=== PATIENT | female | born 1955 | race Caucasian/White ===

== ENCOUNTER 2016-06-01 20:37 | Emergency (ER) | payer OTHER ==
--- NOTE | ~2016-06-01 | EKG ---
PATIENT: CARMEN HATCH UNIT #: [id number] Ventricular Rate: 94 BPM Atrial Rate: 94 BPM P-R Interval: 136 ms QRS Duration: 72 ms Q-T Interval: 386 ms QTC Calculation(Bezet): 482 ms P [place]: 69 degrees Calculated R [place]: 18 degrees Calculated T [place]: 27 degrees Diagnosis Line: Normal sinus rhythm Diagnosis Line: Nonspecific ST abnormality Diagnosis Line: Otherwise normal ECG Diagnosis Line: When compared with ECG of 22-DEC-2015 19:34, Diagnosis Line: No significant change was found Diagnosis Line: Confirmed by NILSA HOOVER MD ([id number]) on 06/05/2016 Diagnosis Line: 8:00:57 PM INTERPRETING MD: SNEHA RODRIGUEZ
--- NOTE | ~2016-06-01 | CR72 ---
[facility]. [facility] A Service of [facility] & [facility] RADIOLOGY TEXT RESULTS PATIENT: CARMEN HATCH LOCATION: SED : 54 UNIT #: [id number] AGE: [address]: Pacheco Don MD SEX: F ORDER DR: [id number] [place] [id number] E MR#: [id number] Acc #: [id number] NAME: CARMEN HATCH : 1955 SEX: F STUDY DATE/TIME: 06/01/2016 20:12 UNIT: SED ROOM: STUDY DESCRIPTION: CR Chest Single View Portable Attending Physician: Pacheco Don M.D. Ordering Physician: Pacheco Don M.D. Primary Care Physician: No Primary Care Physician MEDICAL IMAGING REPORT This report is preliminary unless electronic signature is present. EXAM Portable chest HISTORY Shortness of air today. Drug overdose. FINDINGS Cardiac size and pulmonary vascularity are within normal limits. No infiltrates or effusions. Moderate sized hiatal hernia. IMPRESSION 1. No acute findings and no active disease. 2. Moderate sized hiatal hernia. Dictated by... Adonis Bradshaw M.D. THIS IS AN ELECTRONICALLY VERIFIED REPORT Adonis Bradshaw M.D. at 06/02/2016 9:10 AM TOMMIE/ellen TD: 06/01/2016 23:27 JOB #: [id number] MEDICAL IMAGING REPORT Page 1 of 1
[2016-06-01 20:19] LABS: BASOPHIL# 0.1 X10e3 (0-0.3); BASOPHIL% 1.4 % (0-2.5); EOSINOPHIL% 0.3 % (0.0-7.0); HEMATOCRIT 45.4 % (35.0-45.0); HEMOGLOBIN 15.1 gm/dL (12.0-16.0); LYMPHOCYTE# 1.7 X10e3 (1.0-3.5); LYMPHOCYTE% 22.9 % (17.0-45.0); MEAN CELL VOLUME 86.6 FL (83-96); MEAN CORPUSCULAR HEMOGLOBIN 28.8 PG (28-34); MEAN CORPUSCULAR HGB CONC 33.3 g/dL (30-36); MEAN PLATELET VOLUME 7.9 FL (6.5-11.5); MONOCYTE# 0.6 X10e3 (0-1.0); MONOCYTE% 8.1 % (3.0-12.0); NEUTROPHIL# 5.1 X10e3 (1.5-7.1); NEUTROPHIL% 67.3 % (40-75); PLATELET COUNT 325 X10e3 (140-420); RED BLOOD COUNT 5.24 X10e (3.90-5.30); WHITE BLOOD COUNT 7.6 X10e3 (4.0-10.5)
[2016-06-01 20:21] LABS: DIFF IND NO
[2016-06-01 20:36] LABS: ALBUMIN SERUM 4.4 g/dL (3.5-5.0); ALKALINE PHOSPHATASE 104 U/L (32-92); ALT (SGPT) 15 U/L (10-40); AST (SGOT) 19 U/L (10-42); BILIRUBIN, DIRECT 0.1 mg/dL (0.0-0.2); BILIRUBIN,INDIRECT 0.5 mg/dL (0.0-0.9); BILIRUBIN,TOTAL 0.6 mg/dL (0.2-2.0); BLOOD UREA NITROGEN 22 mg/dL (9-23); BUN/CREATININE RATIO 31.42; CALCIUM SERUM 9.5 mg/dL (8.4-10.2); CARBON DIOXIDE 24 mmol/L (22-31); CHLORIDE 104 mmol/L (100-111); CREATININE SERUM 0.7 mg/dL (0.6-1.4); GLOM FILT RATE Estimated 93.5 mL/min (>60); GLUCOSE FASTING 114 mg/dL (70-110); POTASSIUM 3.8 mmol/L (3.5-5.1); PROTEIN TOTAL SERUM 7.3 g/dL (6.0-8.3); SALICYLATE <4.0 mg/dL; SODIUM 140 mmol/L (135-145)
[2016-06-01 20:37] LABS: ACETAMINOPHEN <10 ug/mL; ALCOHOL BLOOD <5 mg/dL ([, 0])
[~2016-06-01 20:37] MED LIST: ALLEGRA ALLERG180 MG PO; ARICEPT5 M1 PO; ATARAX; BUSPAR15 M3; CHROMIUM400 MCG PO; DEPAKOTE PO; GABAPENTIN400 MG PO; KLONOPIN; KLONOPIN PO; KLONOPIN0.5 M2 PO; KLONOPIN1 MG PO; LAMICTAL100 MG PO; LEVAQUIN750 MG PO; LIPITOR; LIPITOR PO; LIPITOR40 MG PO; LISINOPRIL10 MG PO; LORAZEPAM0.5 MG PO; OLANZAPINE10 MG PO; OLANZAPINE5 MG; OMEPRAZOLE40 M1 PO; PHENERGAN PO; PRILOSEC PO; PROZAC PO; PROZAC40 MG PO; REMERON PO; VALERIAN ROOT100 MG PO; VISTARIL PO; VOLTAREN75 MG PO; ZEBETA5 M1 PO; ZEBETA5 MG PO; ZETIA PO; ZYPREXA10 MG; ZYPREXA10 MG PO
[2016-06-01 20:38] LABS: POC - CKMB 1.5 ng/mL (0.0-7.9); POC - MYOGLOBIN 69.6 ng/mL (0.0-169.0); POC - TROPONIN <0.05 ng/mL (<=0.05)
[2016-06-01 22:08] LABS: URINE SOURCE CLEAN CATCH
[2016-06-01 22:11] LABS: URINE APPEARANCE HAZY; URINE BLOOD NEG (NEG); URINE COLOR YELLOW; URINE GLUCOSE NEG (NORM); URINE LEUKOCYTE ESTERASE TRACE (NEG); URINE NITRATE NEG (NEG); URINE PH 5.5 (5-8); URINE PROTEIN TRACE (NEG); URINE SPECIFIC GRAVITY >=1.030 (1.003-1.035); URINE UROBILINOGEN 0.2 MG/DL (NORM)
[2016-06-01 22:14] LABS: MICRO INDICATED? YES; URINE BILIRUBIN NEG (NEG); URINE KETONE 2+ (NEG)
[2016-06-01 22:16] LABS: CULTURE INDICATED? YES; URINE BACTERIA 2+ (NEG); URINE MUCUS PRESENT; URINE RBC 0-2 /[HPF] (0-2); URINE SQUAMOUS EPITHELIAL CELL MODERATE /[HPF]; URINE TRANSITIONAL EPI CELLS FEW /[HPF]
[2016-06-01 22:21] LABS: AMPHETAMINE NEG (NEG); BARBITURATES NEG (NEG); BENZODIAZEPINES POS (NEG); COCAINE NEG (NEG); MARIJUANA NEG (NEG); OPIATES NEG (NEG); TRICYCLIC ANTIDEPRESSANTS POS (NEG); U METHADONE NEG (NEG)
== END 2016-06-01 23:32 | disposition home or self-care (01) ==
LOC: SED 20:37
PROVIDERS: Emergency Medicine
DX: E86.0 Dehydration (principal); F15.93 Other stimulant use, unspecified with withdrawal; F32.9 Major depressive disorder, single episode, unspecified; I10 Essential (primary) hypertension; E78.5 Hyperlipidemia, unspecified; F17.200 Nicotine dependence, unspecified, uncomplicated; Z88.0 Allergy status to penicillin
CPT/HCPCS: 36415; 71010; 80048; 80076; 80307; 81003; 82553; 82947; 83874; 84484; 85025; 87086; 93005; 96360; 99284; G0480

== ENCOUNTER 2016-06-15 22:32 | Inpatient (IN) | payer OTHER ==
--- NOTE | ~2016-06-15 | DS ---
Unit #: [id number] #: [id number] Patient: CARMEN HATCH [id number] [address] [address] [id number] I MR#: [id number] NAME: CARMEN HATCH. ROOM: 340 Age: 60 Sex: F Admission Date: 06/15/2016 : 1955 Discharge Date: 06/19/2016 Attending Physician: Yohan Oneal M.D. Primary Care Physician: No Primary Care Physician DISCHARGE SUMMARY ADMITTING DIAGNOSES 1. Falls. 2. Back pain. DISCHARGE DIAGNOSES 1. Falls. 2. Back pain. 3. L2 compression up to 50% loss. 4. Hypertension. 5. Hyperlipidemia. 6. Generalized anxiety disorder. 7. Panic disorder. 8. History of acid reflux. 9. Early dementia. 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 PROCEDURE DONE TLSO brace. HISTORY OF PRESENTING ILLNESS The patient is a 60-year-old lady with multiple medical problems including hypertension, hyperlipidemia, history of generalized anxiety disorder, panic disorder, acid reflux, early dementia, who lives at home. The patient was brought by her spouse because of a fall at home. Apparently, prior to the hospitalization, she had frequent falls for the last two to three days. HOSPITAL COURSE On the initial evaluation, she was noted to have a L2 compression fracture with more than 50% of loss in the vertebral body height. She was seen by spine surgeon. He recommended her initially to have a TLSO brace and to follow with Dr. Gordon as an outpatient and decide further if she needs surgery. She is currently on morphine pump and I spoke with the nurses. Apparently, she is not using the morphine pump and we will switch her to oral pain medications. I spoke with her on the phone and he is agreeable for her to go to rehab. She is drowsy, rousable to verbal commands. On the day of discharge, her physical examination: GENERAL APPEARANCE: The patient is sleepy, rousable to verbal commands. VITAL SIGNS: Temperature 99.2. Pulse rate 74. Respirations 18. Blood pressure 154/84. Unit #: [id number] #: [id number] Patient: CARMEN HATCH HEENT: Normocephalic, atraumatic. No icterus. PERRLA. Extraoculars intact. NECK: Supple. No JVD. HEART: S1, S2. Regular rate and rhythm. CHEST: Bilateral equal air entry. Clear to auscultation. ABDOMEN: Soft, nontender. EXTREMITIES: No edema. Normal pulses. Kindly note she is in a TLSO brace. DISCHARGE MEDICATIONS 1. Lovenox 40 mg subcu daily. 2. Neurontin 400 mg p.o. three times a day. 3. Prozac 40 mg in the morning. 4. Remeron 15 mg at bedtime. 5. Zetia 10 mg daily. 6. Klonopin 1 mg p.o. three times a day p.r.n. for anxiety. 7. Zebeta 10 mg p.o. daily. 8. Colace 100 mg p.o. twice a day. 9. MiraLax 17 g p.o. daily. 10. Aricept 10 mg at bedtime. 11. Lipitor 40 mg daily. 12. Lisinopril 10 mg daily. 13. Hydrocodone/Tylenol 5/325 mg one to two tablets p.o. q.4 hours p.r.n. for pain. 14. Omeprazole 40 mg daily. 15. Calcium and vitamin D 500 mg p.o. daily. 16. Vitamin D 50,000 units p.o. monthly. She is instructed to follow with her primary care and with Dr. Gordon in one to two weeks. Total time spent in her care 35 minutes. Dictated by... Yohan Oneal M.D. RICKY/ramon TD: 06/19/2016 13:35 JOB #: [id number] DISCHARGE SUMMARY Page 1 of 1 X X DISCHARGE SUMMARY
--- NOTE | ~2016-06-15 | CR181 ---
[facility] A Service of [facility] RADIOLOGY TEXT RESULTS PATIENT: CARMEN HATCH LOCATION: [place] [address] : 54 UNIT #: [id number] AGE: [address]: Jovanna Nogueira MD SEX: F ORDER DR: [id number] [place] [id number] [facility]. [place], [place] [address] [id number] E MR#: [id number] Acc #: [id number] NAME: CARMEN HATCH. : 1955 SEX: F STUDY DATE/TIME: 06/15/2016 22:11 UNIT: [facility] ROOM: STUDY DESCRIPTION: CR Lumbar Spine 2 or 3 Views Attending Physician: Fracisco Jenkins M.D. Ordering Physician: Fracisco Jenkins M.D. Primary Care Physician: No Primary Care Physician MEDICAL IMAGING REPORT This report is preliminary unless electronic signature is present EXAM Lumbar spine, 3 views. HISTORY Back pain after fall today. FINDINGS 3 views lumbar spine demonstrate moderately severe compression fracture of the superior endplate of L2 with close to 50% loss of the L2 vertebral body height, presuming 6 lumbar-type vertebrae. Moderately severe degenerative disc space narrowing at multiple lumbar levels, greater at L4-5. No lumbar subluxation. Minimal mid-right lumbar curve. IMPRESSION Moderately severe compression fracture of the superior endplate of L2 with 50% loss of the L2 vertebral body height, presuming 6 lumbar-type vertebrae for the purposes of lumbar level labeling. This could be a recent fracture and consider further characterization with CT and correlation to the patient's symptoms. Additional multilevel degenerative changes in lumbar spine. Dictated by... Adonis Bradshaw M.D. THIS IS AN ELECTRONICALLY VERIFIED REPORT Adonis Bradshaw M.D. at 06/16/2016 3:25 PM TOMMIE/fern TD: 06/15/2016 23:28 JOB #: [id number] MEDICAL IMAGING REPORT [facility] A Service of [facility] RADIOLOGY TEXT RESULTS PATIENT: CARMEN HATCH LOCATION: [facility] 340-01 : 54 UNIT #: [id number] AGE: [address]: Jovanna Nogueira MD SEX: F ORDER DR: Page 1 of 1 COPY
--- NOTE | ~2016-06-15 | CR71 ---
[facility] A Service of [facility] & [facility] RADIOLOGY TEXT RESULTS PATIENT: CARMEN HATCH LOCATION: [facility] 340- : 54 UNIT #: [id number] AGE: [address]: Jovanna Nogueira MD SEX: F ORDER DR: [id number] [facility] [address] [facility]. [place], [place] [address] [id number] E MR#: [id number] Acc #: [id number] NAME: CARMEN HATCH. : 1955 SEX: F STUDY DATE/TIME: 06/15/2016 22:09 UNIT: [facility] ROOM: STUDY DESCRIPTION: CR Chest Single View Attending Physician: Fracisco Jenkins M.D. Ordering Physician: Fracisco Jenkins M.D. Primary Care Physician: No Primary Care Physician MEDICAL IMAGING REPORT This report is preliminary unless electronic signature is present EXAM Portable chest HISTORY Shortness of air and chest pain after fall today. FINDINGS The cardiac size and pulmonary vascularity are normal. Moderate sized hiatal hernia. Right perihilar infiltrate or atelectasis, new compared to 12/22/2015. There is also new mild linear atelectasis or scarring in the left lower lung and lateral right base. IMPRESSION Moderate sized hiatal hernia. Mild right perihilar atelectasis or infiltrate. Dictated by... Adonis Bradshaw M.D. THIS IS AN ELECTRONICALLY VERIFIED REPORT Adonis Bradshaw M.D. at 06/16/2016 3:25 PM DFL/rnbinh TD: 06/15/2016 23:26 JOB #: [id number] MEDICAL IMAGING REPORT Page 1 of 1 COPY
--- NOTE | ~2016-06-15 | CO ---
Unit #: [id number] #: [id number] Patient: CARMEN HTACH [id number] [address] [place], [place] [address] [id number] I MR#: [id number] NAME: CARMEN HATCH. ROOM: 340 Age: 60 Sex: F Admission Date: 06/15/2016 : 1955 Attending Physician: Jovanna Nogueira M.D. Primary Care Physician: Primary Care Physician No Consultation Date: 06/16/2016 CONSULTATION REPORT HISTORY OF PRESENT ILLNESS The patient is a 60 year old, who fell on her buttocks at home. She has severe back pain that radiates into both legs. She is immobilized in pain. PAST MEDICAL HISTORY Per chart. MEDICATIONS Include: 1. Aricept 2. Prozac 3. Gabapentin 4. Klonopin 5. Lisinopril 6. Lipitor 7. Prilosec 8. Remeron 9. Zetia 10. Zebeta ALLERGIES She is allergic to penicillin. REVIEW OF SYSTEMS Fourteen point review of systems is negative except for the above. SOCIAL HISTORY She is a nonsmoker and nondrinker. PHYSICAL EXAMINATION GENERAL: She is lying flat in bed with her legs curled. She is a poor historian. EXTREMITIES: She is unable to move her legs without severe pain. There are no long track signs, no hyperreflexia. She has a Kelly catheter in place and an IV drip with Levaquin presumably for a urinary tract infection, not apparent in chart or history. IMAGING: X-rays of the lumbar spine demonstrate a L2 fracture with 23 degrees of angulation. There is no other two dimensional imaging available. CLINICAL IMPRESSION L2 fracture of unknown stability. Unit #: [id number] #: [id number] Patient: CARMEN HATCH RECOMMENDATIONS Stat CT scan of the lumbar spine to assess the posterior elements. This is likely a higher energy injury than a typical osteoporotic compression fracture given the angulation. If the posterior elements are stable, then, simply bracing this fracture would be indicated if the posterior elements are disrupted. She will require surgical stabilization. I am going to put her on a morphine TRIAL LAWYER. She is in severe pain. This will give her some control not withstanding her early dementia over her pain management. She will also require assistance with her meals with her head of bed no greater than 30 degrees elevated and she should remain at bedrest until further assessment by CT scan is undertaken. Dictated by... Maria Esther Landrum/luis antonio TD: 06/16/2016 15:16 JOB #: [id number] CONSULTATION REPORT Page 1 of 1 X Pacheco Gordon MD X CONSULTATION REPORT
--- NOTE | ~2016-06-15 | HP ---
Unit #: [id number] #: [id number] Patient: CARMEN HATCH [id number] [address] [place], [place] [address] [id number] I MR#: [id number] NAME: CARMEN HATCH. ROOM: 340 Age: 60 Sex: F Admission Date: 06/15/2016 : 1955 Attending Physician: Jovanna Nogueira M.D. Primary Care Physician: Primary Care Physician No HISTORY AND PHYSICAL CHIEF COMPLAINT The patient was brought here by her with chief complaint of falling at home for back pain, and evaluation for [facility]. HISTORY OF PRESENT ILLNESS This is a 60-year-old female, who has a past medical history of dyslipidemia, hypertension, generalized anxiety disorder, panic disorder, acid reflux, questionable early dementia. She lives at home. She was her and she was brought to the emergency room for evaluation of falling at home. She had been falling for the last four days and the last time she fell was 2:00 p.m. today, and when she was brought to the emergency room she was found to be covered in feces and urine all over and on workup she has a questionable right basilar infiltrate and her potassium was 2.8. X-ray of the lumbar spine shows compression fracture of L2 with 50% loss and she was eventually admitted for further workup and evaluation for possible placement in [facility] [place] [facility] or [facility]. She, at this time, is a very poor historian. She is telling me that she has been having falls and she is having back pain, but she denies any chest pain, nausea, vomiting, cough, fever, chills, or any other complaint. PAST MEDICAL HISTORY 1. History of dyslipidemia. 2. Hypertension. 3. Generalized anxiety, panic disorder. 4. History of gastroesophageal reflux disease. 5. History of early dementia. PAST SURGICAL HISTORY 1. History of hernia repair. 2. History of foot surgery. ALLERGIES She is allergic to penicillin. SOCIAL HISTORY She smokes one pack per day. She denies alcohol. She denies any illicit drug use. MEDICATIONS FROM HOME Is the followin. Lipitor 40 mg daily 2. Zebeta 5 mg daily 3. Clonazepam 1 mg three times a day 4. Aricept 10 mg daily Unit #: [id number] #: [id number] Patient: CARMEN HATCH 5. Zetia 10 mg daily 6. Prozac 40 mg daily 7. Gabapentin 400 mg three times daily 8. Lisinopril 10 mg daily 9. Remeron 15 mg at bedtime 10. Omeprazole 40 mg daily 11. Neupro patch every 24-hours REVIEW OF SYSTEMS All review of systems negative except as in history of present illness. PHYSICAL EXAMINATION GENERAL: Middle-aged female lying in the bed comfortably, currently not in any distress. She is alert, awake, and oriented x3, comfortable, not in any distress. VITAL SIGNS: Current vitals are the following, temperature 98.3, heart rate of 104, respiratory rate 29, and blood pressure 196/99. HEENT EXAMINATION: Pupils equal reactive to light and accommodation. Head: Normocephalic and atraumatic. NECK: Supple. No jugular venous distention. HEART: S1 and S2, regular rate and rhythm. LUNGS: Clear to auscultation. No rhonchi. No wheezing. ABDOMEN: Soft, nontender, and nondistended. Bowel sounds are positive. EXTREMITIES: Inspection normal. No cyanosis, no clubbing, and no edema. NEUROLOGIC: She is alert and oriented x4. Sensory and motor intact, cannot do motor exam check due to patient's pain. SKIN: No rash. DIAGNOSTIC STUDIES LABORATORY: Laboratory workup is the following, BMP, sodium 140, potassium 2.8, chloride 105, glucose 105, BUN 20, creatinine 0.9, LFT within normal limits. White count is 13, hemoglobin 15, hematocrit 47, platelets 332. IMAGING: CT head is normal, no acute abnormality. X-ray of lumbar spine shows moderate compression fracture of superior endplate of L2 with 50% loss of L2 vertebral height. The chest x-ray shows moderate size hiatal hernia, right perihilar vs infiltrate. ASSESSMENT/PLAN 1. Pneumonia with right perihilar infiltrate, start the patient on IV Levaquin. 2. Hypokalemia, replace, check magnesium level in the morning. 3. Compression fracture of L2, will ask spine surgery to evaluate, (1) . 4. History of dyslipidemia. 5. Hypertension. 6. Generalized anxiety/panic disorder. 7. Gastroesophageal reflux disease, hiatal hernia. 8. Early dementia. 9. DVT prophylaxis, will place the patient on Lovenox. 10. She needs possible rehab placement, will ask network planner and social media director to evaluate. Unit #: [id number] #: [id number] Patient: HOLDENCARMEN Venkatesh Dictated by Maria Esther Redmond/luis antonio TD: 06/16/2016 11:07 JOB #: [id number] HISTORY AND PHYSICAL Page 1 of 1 X X HISTORY AND PHYSICAL
--- NOTE | ~2016-06-15 | CT98 ---
[facility] A Service of [facility] & [facility] RADIOLOGY TEXT RESULTS PATIENT: CARMEN HATCH LOCATION: [facility] 340-01 : 54 UNIT #: [id number] AGE: [address]: Yohan Oneal MD SEX: F ORDER DR: [id number] [facility] [address] [facility]. [place], [place] [address] [id number] I MR#: [id number] Acc #: [id number] NAME: CARMEN HATCH. : 1955 SEX: F STUDY DATE/TIME: 06/16/2016 15:35 UNIT: [address] ROOM: 340 STUDY DESCRIPTION: CT Lumbar Spine Wo Cont Attending Physician: Jovanna Nogueira M.D. Ordering Physician: Pacheco Gordon M.D. Primary Care Physician: Primary Care Physician No MEDICAL IMAGING REPORT This report is preliminary unless electronic signature is present EXAM CT lumbar spine without contrast HISTORY 60-year-old female fell yesterday, low back pain, fracture noted. COMPARISON Lumbar spine films 06/15/2016 FINDINGS Thin-section axial images performed through the lumbar spine without contrast. Multiplanar reconstructed images reviewed at a workstation. This CT exam was performed with one or more of the following radiation dose reduction techniques: Automatic exposure control, adjustment of mA and/or kV according to patient size, and iterative reconstruction. There are 6 wla-[id number] lumbar vertebral bodies. Generalized osteopenia. There is a comminuted fracture of the L2 vertebral body with fractures extending vertically and horizontally through the L2 vertebral body, particularly along the posterior aspect. There is a sizable retropulsed fragment across the spinal canal at the L2 level contributing to severe central canal stenosis with only 8 mm residual canal noted and the fragment is displaced posteriorly over 7 mm. No definite pathologic lesion identified within the vertebral body. I suspect this represents an osteoporotic compression fracture. There is mild L2-3 degenerative disc changes with circumferential disc bulge and mild spinal and foraminal stenosis. Degenerative disc changes noted at L4-5 and L5-6 with endplate sclerosis. Circumferential disc bulging with mild central canal and foraminal stenosis. Mild facet arthropathy. The L6-S1 disc space unremarkable. SI joints and paravertebral soft tissues unremarkable except for several nonobstructing left renal stones. There is greater than 40% loss of the L2 vertebral body height. [facility]. [facility] A Service of [facility] RADIOLOGY TEXT RESULTS PATIENT: CARMEN HATCH LOCATION: [facility] 340-01 : 54 UNIT #: [id number] AGE: [address]: Yohan Oneal MD SEX: F ORDER DR: IMPRESSION 1. Comminuted L2 vertebral body fracture probably representing a severe osteoporotic compression fracture with retropulsion of a sizable fragment along the posterior vertebral body contributing to severe central canal stenosis with greater than 50% compromise of the spinal canal at this level. There is close to 50% loss of the L2 vertebral body height. 2. Please note for numbering purposes, there are 6 zzh-shk-[id number] lumbar segments. 3. L4-5 and L5-6 degenerative disc disease and mild lower lumbar spine facet arthropathy. Dictated by... Casandra Fonseca M.D. THIS IS AN ELECTRONICALLY VERIFIED REPORT Casandra Fonseca M.D. at 06/17/2016 1:06 PM DMITRI/danica TD: 06/16/2016 17:54 JOB #: [id number] MEDICAL IMAGING REPORT Page 1 of 1 COPY
--- NOTE | ~2016-06-15 | EKG ---
PATIENT: CARMEN HATCH UNIT #: [id number] Ventricular Rate: 96 BPM Atrial Rate: 96 BPM P-R Interval: 130 ms QRS Duration: 78 ms Q-T Interval: 404 ms QTC Calculation(Bezet): 510 ms P [place]: 56 degrees Calculated R [place]: 9 degrees Calculated T [place]: 28 degrees Diagnosis Line: Normal sinus rhythm Diagnosis Line: Possible Left atrial enlargement Diagnosis Line: Nonspecific ST abnormality Diagnosis Line: Prolonged QT Diagnosis Line: Abnormal ECG Diagnosis Line: When compared with ECG of 01-JUN-2016 20:04, Diagnosis Line: No significant change was found Diagnosis Line: Confirmed by LAUREN HERNANDEZ MD ([id number]) on Diagnosis Line: 06/16/2016 12:41:54 PM INTERPRETING BISI HERNANDEZ
--- NOTE | ~2016-06-15 | CT71 ---
[facility] A Service [facility] RADIOLOGY TEXT RESULTS PATIENT: CARMEN HATCH LOCATION: [facility] 340- : 54 UNIT #: [id number] AGE: [address]: Jovanna Nogueira MD SEX: F ORDER DR: [id number] [place] [id number] [facility]. [place], [place] [address] [id number] E MR#: [id number] Acc #: [id number] NAME: CARMEN HATCH. : 1955 SEX: F STUDY DATE/TIME: 06/15/2016 22:50 UNIT: [facility]ING[facility] ROOM: STUDY DESCRIPTION: CT Head Wo Contrast Attending Physician: Fracisco Jenkins M.D. Ordering Physician: Fracisco Jenkins M.D. Primary Care Physician: No Primary Care Physician MEDICAL IMAGING REPORT This report is preliminary unless electronic signature is present EXAM CT head, noncontrast, 06/15/2016 HISTORY 60-year-old female with history of dementia presenting to the ED with new onset mental status changes and confusion today. She reportedly fell earlier today. TECHNIQUE CT examination of the head without IV contrast. This CT exam was performed with one or more of the following radiation dose reduction techniques: automatic control, adjustment of mA and/or kV according to patient size, and iterative reconstruction. FINDINGS No acute intracranial abnormality is identified. No evidence of intracranial hemorrhage, mass, mass effect, cerebral edema or additional abnormality. No significant change since 12/11/2015. Chronic sinusitis changes involving the right maxillary antrum. IMPRESSION No acute intracranial abnormality. No change since 12/11/2015. Dictated by... Marlon Griffin M.D. THIS IS AN ELECTRONICALLY VERIFIED REPORT Marlon Griffin M.D. at 06/16/2016 5:53 AM OLLIEW/ellen TD: 06/15/2016 23:31 JOB #: [id number] [facility] A Service [facility] RADIOLOGY TEXT RESULTS PATIENT: CARMEN HATCH LOCATION: [facility] 340-01 : 54 UNIT #: [id number] AGE: [address]: Jovanna Nogueira MD SEX: F ORDER DR: MEDICAL IMAGING REPORT Page 1 of 1 COPY
--- NOTE | ~2016-06-15 | DS ---
Unit #: [id number] #: [id number] Patient: CARMEN HATCH [id number] [address] [address] [id number] I MR#: [id number] NAME: CARMEN HATCH. ROOM: 340 Age: 60 Sex: F Admission Date: 06/15/2016 : 1955 Discharge Date: Attending Physician: Yohan Oneal M.D. Primary Care Physician: No Primary Care Physician DISCHARGE SUMMARY ADDENDUM I dictated discharge summary yesterday and she was supposed to go to rehab and her discharge was not done. She will be discharged to the rehab today. Small changes from yesterday include: 1. Yesterday we stopped her morphine drip. She is taking p.o. pain medications and she is tolerating them well. 2. She is also having constipation. We are giving her laxatives including milk of magnesia and prune juice. And if required, will give her a tap water enema. PHYSICAL EXAMINATION There is no change in her physical examination apart from vital signs. DISCHARGE MEDICATIONS The only addition will be milk of magnesia 30 mL q.6 p.r.n. for constipation. Dictated by... Maria Esther Augustine/mark TD: 06/20/2016 12:40 JOB #: [id number] DISCHARGE SUMMARY Page 1 of 1 X X DISCHARGE SUMMARY
[2016-06-15 22:26] LABS: BASOPHIL# 0.1 X10e3 (0-0.3); BASOPHIL% 0.4 % (0-2.5); EOSINOPHIL% 0.1 % (0.0-7.0); HEMATOCRIT 47.9 % (35.0-45.0); HEMOGLOBIN 15.6 gm/dL (12.0-16.0); LYMPHOCYTE# 1.1 X10e3 (1.0-3.5); MEAN CELL VOLUME 85.8 FL (83-96); MEAN CORPUSCULAR HGB CONC 32.6 g/dL (30-36); MEAN PLATELET VOLUME 8.2 FL (6.5-11.5); MONOCYTE% 7.7 % (3.0-12.0); NEUTROPHIL# 11.2 X10e3 (1.5-7.1); NEUTROPHIL% 83.8 % (40-75); PLATELET COUNT 332 X10e3 (140-420); RED BLOOD COUNT 5.59 X10e (3.90-5.30); RED CELL DISTRIBUTION WIDTH 14.8 % (11.0-15.5); WHITE BLOOD COUNT 13.3 X10e3 (4.0-10.5)
[2016-06-15 22:30] LABS: DIFF IND NO
[2016-06-15 22:58] LABS: ALBUMIN SERUM 4.1 g/dL (3.5-5.0); ALKALINE PHOSPHATASE 119 U/L (32-92); ALT (SGPT) 23 U/L (10-40); AST (SGOT) 26 U/L (10-42); BILIRUBIN, DIRECT 0.1 mg/dL (0.0-0.2); BILIRUBIN,INDIRECT 1.1 mg/dL (0.0-0.9); BILIRUBIN,TOTAL 1.2 mg/dL (0.2-2.0); BLOOD UREA NITROGEN 20 mg/dL (9-23); BUN/CREATININE RATIO 22.22; CALCIUM SERUM 8.9 mg/dL (8.4-10.2); CARBON DIOXIDE 20 mmol/L (22-31); CHLORIDE 105 mmol/L (100-111); CREATININE SERUM 0.9 mg/dL (0.6-1.4); GLOM FILT RATE Estimated 69.1 mL/min (>60); GLUCOSE FASTING 105 mg/dL (70-110); PROTEIN TOTAL SERUM 7.2 g/dL (6.0-8.3); SALICYLATE <4.0 mg/dL; SODIUM 140 mmol/L (135-145)
[2016-06-15 23:06] LABS: POTASSIUM 2.8 mmol/L (3.5-5.1)
[2016-06-15 23:07] LABS: ACETAMINOPHEN <10 ug/mL
[2016-06-16 00:19] LABS: URINE SOURCE CLEAN CATCH
[2016-06-16] MEDS ORDERED: ZEBETA10 MG PO (00:25)
[2016-06-16] MEDS ORDERED: ZETIA PO (00:25)
[2016-06-16 00:39] LABS: URINE APPEARANCE CLOUDY; URINE BILIRUBIN NEG (NEG); URINE BLOOD TRACE (NEG); URINE COLOR YELLOW; URINE GLUCOSE 500 MG/DL (NEG); URINE KETONE 3+ (NEG); URINE LEUKOCYTE ESTERASE NEG (NEG); URINE NITRATE NEG (NEG); URINE PROTEIN 1+ (NEG); URINE SPECIFIC GRAVITY 1.028 (1.003-1.035)
[2016-06-16 00:41] LABS: URBCS1 AUWI 0-2 /[HPF] (0-2); URINE BACTERIA AUWI NEG (NEGATIVE); URINE SQUAMOUS EPITHELIAL CELL OCC /[HPF]; UWBCS1 AUWI 0-2 (0-5)
[2016-06-16 00:47] LABS: AMPHETAMINE NEG (NEG); BARBITURATES NEG (NEG); BENZODIAZEPINES NEG (NEG); COCAINE NEG (NEG); MARIJUANA NEG (NEG); OPIATES NEG (NEG); TRICYCLIC ANTIDEPRESSANTS NEG (NEG); U METHADONE NEG (NEG)
[2016-06-16 00:53] LABS: CULTURE INDICATED? NO; U HYALINE CASTS AUWI 0-2 /[LPF]
[2016-06-16 08:42] LABS: BASOPHIL# 0.1 X10e3 (0-0.3); BASOPHIL% 0.9 % (0-2.5); EOSINOPHIL% 0.1 % (0.0-7.0); HEMATOCRIT 45.2 % (35.0-45.0); HEMOGLOBIN 14.4 gm/dL (12.0-16.0); LYMPHOCYTE# 1.6 X10e3 (1.0-3.5); LYMPHOCYTE% 14.6 % (17.0-45.0); MEAN CELL VOLUME 86.5 FL (83-96); MEAN CORPUSCULAR HEMOGLOBIN 27.6 PG (28-34); MEAN CORPUSCULAR HGB CONC 31.9 g/dL (30-36); MEAN PLATELET VOLUME 8.6 FL (6.5-11.5); MONOCYTE# 1.1 X10e3 (0-1.0); MONOCYTE% 9.7 % (3.0-12.0); NEUTROPHIL# 8.4 X10e3 (1.5-7.1); NEUTROPHIL% 74.7 % (40-75); PLATELET COUNT 290 X10e3 (140-420); RED BLOOD COUNT 5.23 X10e (3.90-5.30); WHITE BLOOD COUNT 11.3 X10e3 (4.0-10.5)
[2016-06-16 08:50] LABS: DIFF IND NO
[2016-06-16 09:05] LABS: BUN/CREATININE RATIO 22.22; CALCIUM SERUM 8.4 mg/dL (8.4-10.2); CREATININE SERUM 0.9 mg/dL (0.6-1.4); GLOM FILT RATE Estimated 69.1 mL/min (>60); MAGNESIUM 1.9 mg/dL (1.6-3.0); POTASSIUM 3.1 mmol/L (3.5-5.1)
[2016-06-17 06:19] LABS: HEMATOCRIT 40.3 % (35.0-45.0); HEMOGLOBIN 12.9 gm/dL (12.0-16.0); MEAN CELL VOLUME 86.6 FL (83-96); MEAN CORPUSCULAR HEMOGLOBIN 27.8 PG (28-34); MEAN CORPUSCULAR HGB CONC 32.1 g/dL (30-36); MEAN PLATELET VOLUME 8.3 FL (6.5-11.5); RED BLOOD COUNT 4.66 X10e (3.90-5.30); RED CELL DISTRIBUTION WIDTH 15.1 % (11.0-15.5)
[2016-06-17 06:55] LABS: BUN/CREATININE RATIO 23.75; CALCIUM SERUM 8.6 mg/dL (8.4-10.2); CREATININE SERUM 0.8 mg/dL (0.6-1.4); GLOM FILT RATE Estimated 79.6 mL/min (>60); POTASSIUM 4.1 mmol/L (3.5-5.1)
[2016-06-18 06:15] LABS: HEMATOCRIT 39.6 % (35.0-45.0); HEMOGLOBIN 12.9 gm/dL (12.0-16.0); MEAN CELL VOLUME 86.1 FL (83-96); MEAN CORPUSCULAR HEMOGLOBIN 27.9 PG (28-34); MEAN CORPUSCULAR HGB CONC 32.4 g/dL (30-36); MEAN PLATELET VOLUME 8.5 FL (6.5-11.5); RED BLOOD COUNT 4.6 X10e (3.90-5.30); RED CELL DISTRIBUTION WIDTH 15.2 % (11.0-15.5); WHITE BLOOD COUNT 8.5 X10e3 (4.0-10.5)
[2016-06-18 06:54] LABS: BUN/CREATININE RATIO 14.28; CALCIUM SERUM 8.5 mg/dL (8.4-10.2); CREATININE SERUM 0.7 mg/dL (0.6-1.4); GLOM FILT RATE Estimated 93.5 mL/min (>60); POTASSIUM 4.6 mmol/L (3.5-5.1)
[2016-06-19 07:09] LABS: BUN/CREATININE RATIO 11.42; CALCIUM SERUM 8.9 mg/dL (8.4-10.2); CREATININE SERUM 0.7 mg/dL (0.6-1.4); GLOM FILT RATE Estimated 93.5 mL/min (>60); POTASSIUM 5.3 mmol/L (3.5-5.1)
== END 2016-06-20 13:45 | DRG 551 ==
LOC: CED 22:32 → CEDOF 23:55 → C3A PCU 06-16 01:23
PROVIDERS: Emergency Medicine; Internal Medicine
DX: S32.029A Unspecified fracture of second lumbar vertebra, initial encounter for closed fracture (principal); J18.9 Pneumonia, unspecified organism; F03.90 Unspecified dementia, unspecified severity, without behavioral disturbance, psychotic disturbance, mood disturbance, and anxiety; W19.XXXA Unspecified fall, initial encounter; Y92.009 Unspecified place in unspecified non-institutional (private) residence as the place of occurrence of the external cause; I10 Essential (primary) hypertension; E78.5 Hyperlipidemia, unspecified; F41.1 Generalized anxiety disorder; F41.0 Panic disorder [episodic paroxysmal anxiety]; K21.9 Gastro-esophageal reflux disease without esophagitis; F17.210 Nicotine dependence, cigarettes, uncomplicated; E87.6 Hypokalemia; Z91.81 History of falling; Z79.01 Long term (current) use of anticoagulants; Z79.899 Other long term (current) drug therapy; K59.00 Constipation, unspecified
CPT/HCPCS: 36415; 70450; 71010; 72100; 72131; 80048; 80076; 80307; 81003; 82308; 83735; 85025; 85027; 87040; 93005; 96374; 97116; 97163; 97530; 99285; G0480; J0360; J1650; J1956; J2270

== ENCOUNTER 2016-07-11 12:33 | Emergency (ER) | payer OTHER ==
--- NOTE | ~2016-07-11 | CT98 ---
[facility] A Service of [facility] & [facility] [place] RADIOLOGY TEXT RESULTS PATIENT: CARMEN HATCH LOCATION: [facility] : 53 UNIT #: [id number] AGE: [address]: Messi Ordaz MD SEX: F ORDER DR: [id number] [facility] [address] [place], [place] [address] [id number] E MR#: [id number] Acc #: [id number] NAME: CARMEN HATCH. : 1955 SEX: F STUDY DATE/TIME: 07/11/2016 14:28 UNIT: [facility] ROOM: STUDY DESCRIPTION: CT Lumbar Spine Wo Cont Attending Physician: Messi Ordaz M.D. Ordering Physician: Messi Ordaz M.D. Primary Care Physician: No Primary Care Physician MEDICAL IMAGING REPORT This report is preliminary unless electronic signature is present EXAM CT lumbar spine 07/11/2016 HISTORY Sent from rehab for bulge in lower spine since a.m. Complains of bilateral leg pain. History of hypertension, gastroesophageal reflux disease, wedge compression fracture, second "vert taqueria", dementia. TECHNIQUE CT lumbar spine performed. This CT exam was performed with one or more of the following radiation dose reduction techniques: automatic exposure control, adjustment of mA and/or kV according to patient size, and iterative reconstruction. Bone and soft tissue windows reviewed. Sagittal and coronal reconstructions performed. COMPARISON Comparison to the examination dated 06/16/2016. FINDINGS 6 twl-mpu-asbswbk vertebral body segments noted. In keeping with numbering scheme utilized on prior examination, these will be labeled L1-L6. Visualized lung bases show dependent atelectasis. At least small hiatal hernia. Visualized liver, spleen, pancreas, adrenal glands unremarkable. Left cwk-tz-kbjfd pole nonobstructing renal calculus measuring 3-4 mm in diameter. No acute-appearing renal findings. No pelvic or retroperitoneal adenopathy on these images. Small bowel unremarkable. I believe the patient retains normal appendix. This is a hyperdensity in association with the cecum. Somewhat unclear if this is within the cecum or immediately adjacent to it. It would appear to be metallic in nature and could represent a surgical clip. It is not felt to be acute in time course. [facility] A Service of [facility] RADIOLOGY TEXT RESULTS PATIENT: CARMEN HATCH LOCATION: [facility] #: [id number] : 53 UNIT #: [id number] AGE: [address]: Messi Ordaz MD SEX: F ORDER DR: Generalized bony demineralization. There is an anterior wedge compression deformity of the L1 vertebral body involving a fracture of the anterior-inferior endplate of the L1 vertebral body. The fracture fragment is nondisplaced. It measures approximately 3.2 cm from [id number], 8 mm in craniocaudal extent and 7-8 mm in the AP extent. There is resulting loss of height anteriorly on the order of approximately 26%. Severe comminuted fracture of the L2 vertebral body. This has progressed in the interval from the prior study. Loss of height is most pronounced centrally. Loss of height centrally at L2 on the order of about 57% currently versus about 54% previously. Subtle increase in compression along the anterior, posterior, and lateral aspects of the L2 vertebral body. Retropulsion of prominent posterior-superior L2 vertebral body fragment. This results in severe central and bilateral paracentral spinal canal narrowing. Central spinal canal narrowing down to about 5 mm at some locations more pronounced than on prior study when it was about 9 mm. Significant mass effect on intrathecal nerve roots is likely. Marked narrowing of the bilateral lateral recesses, more pronounced on the right than left but marked bilaterally. There does not appear to be significant neural foraminal narrowing. There is a minimally displaced fracture of the transverse process of L2 on the right. The L2 compression deformity is felt to be an osteoporotic compression fracture. No underlying bony destructive process is seen. Given progression and severe spinal canal narrowing, consider further evaluation by neurosurgical service. No other vzahb-yc-mftuhnui fractures are suggested. There is slight straightening/reversal of lordosis at the L2 level. There is slight levoscoliosis of the lower lumbar spine. Other vertebral body heights are normal. Severe intervertebral disc space narrowing L4-L5, L5-L6. Moderate disc space narrowing L1-L2, L2-L3 and mild L3-L4 disc space narrowing. T11-T12, T12-L1: Unremarkable. L1-L2: No significant disc bulge or herniation is seen. L2 changes as described above. L2-L3: No significant disc bulge. The L2-L3 neural foramina show mild narrowing due to the L2 compression deformity. L3-L4: Minimal posterior concentric disc bulge. Mild mass effect on thecal sac. Minimal spinal canal narrowing. Neural foramina are patent without evidence of exiting nerve impingement. L4-L5: Mild posterior disc osteophyte complex. Straightening of the anterior thecal sac. Minimal central spinal canal narrowing. Associated degenerative facet changes. Mild foraminal narrowing bilaterally. L5-L6: Posterior concentric disc osteophyte complex. Mild spinal canal narrowing. In association with facet degenerative changes, there is STS. [facility] A Service of [facility] RADIOLOGY TEXT RESULTS PATIENT: CARMEN HATCH LOCATION: [facility] : 53 UNIT #: [id number] AGE: [address]: Messi Ordaz MD SEX: F ORDER DR: [id number]-bhslpiyi foraminal narrowing greater on right than left. Exiting right nerve irritation is a consideration. IMPRESSION 1. Abnormal examination. Please see complete dictation above for full details. In keeping with prior examination from May of 2016, the sixth non-rib bearing lumbar-type vertebral segments have been labeled L1-L6. Any intervention based upon these images should take numbering scheme into careful consideration. 2. Progression of comminuted severe compression deformity of the L2 vertebral body. Loss of height most pronounced centrally now up to about 57%, previously about 54%. Worsening retropulsion of a posterior L2 vertebral body fragment now extending about 8 mm posteriorly and reducing spinal canal diameter centrally and in right paracentral region to about 5 mm in AP diameter (previously 9 mm in AP diameter). Significant mass effect on intrathecal nerves at this level is likely. Marked narrowing of the bilateral lateral recesses, right greater than left. Given severe spinal canal narrowing and progression of the compression deformity, neurosurgical consultation is recommended. 3. Anterior wedge compression deformity of the L1 vertebral body involving anterior-inferior endplate. Loss of height anteriorly about 26%. No spinal canal compromise as a result. 4. Minimally displaced right transverse process fracture L2. 5. No underlying bony destructive process. The above described compression deformities are favored to reflect underlying osteoporotic changes. 6. Degenerative changes elsewhere in the lumbar spine are stable compared to May 2016. Please see [id number] description in body of report above. 7. Nonobstructing 3-4 mm mid left renal calculus. Dictated by... Pacheco Tapia M.D. THIS IS AN ELECTRONICALLY VERIFIED REPORT Pacheco Tapia M.D. at 07/12/2016 7:52 PM LENI/kurtis TD: 07/11/2016 16:14 JOB #: [id number] MEDICAL IMAGING REPORT Page 1 of 1 COPY
[~2016-07-11 12:33] MED LIST changes: +ZEBETA10 MG PO
[2016-07-11 17:09] LABS: BASOPHIL% 0.5 % (0-2.5); DIFF IND NO; EOSINOPHIL# 0.1 X10e3 (0-0.7); EOSINOPHIL% 1.5 % (0.0-7.0); HEMATOCRIT 44.5 % (35.0-45.0); HEMOGLOBIN 14.4 gm/dL (12.0-16.0); LYMPHOCYTE# 2.3 X10e3 (1.0-3.5); LYMPHOCYTE% 30.8 % (17.0-45.0); MEAN CELL VOLUME 85.9 FL (83-96); MEAN CORPUSCULAR HEMOGLOBIN 27.8 PG (28-34); MEAN CORPUSCULAR HGB CONC 32.4 g/dL (30-36); MEAN PLATELET VOLUME 8.3 FL (6.5-11.5); MONOCYTE# 0.5 X10e3 (0-1.0); MONOCYTE% 7.4 % (3.0-12.0); NEUTROPHIL# 4.4 X10e3 (1.5-7.1); NEUTROPHIL% 59.8 % (40-75); PLATELET COUNT 309 X10e3 (140-420); RED BLOOD COUNT 5.18 X10e (3.90-5.30); RED CELL DISTRIBUTION WIDTH 15.5 % (11.0-15.5); WHITE BLOOD COUNT 7.4 X10e3 (4.0-10.5)
[2016-07-11 17:22] LABS: PARTIAL THROMBOPLASTIN TIME 26.4 SECONDS (23.5-31.3); PROTHROMBIN TIME (PATIENT) 10.9 SECONDS (9.6-11.5)
[2016-07-11 17:27] LABS: CREATININE SERUM 0.6 mg/dL (0.6-1.4); GLOM FILT RATE Estimated 98.4 mL/min (>60); POTASSIUM 4.3 mmol/L (3.5-5.1)
== END 2016-07-11 19:10 ==
LOC: CED 12:33
PROVIDERS: Emergency Medicine
DX: S32.029A Unspecified fracture of second lumbar vertebra, initial encounter for closed fracture (principal); F41.9 Anxiety disorder, unspecified; F03.90 Unspecified dementia, unspecified severity, without behavioral disturbance, psychotic disturbance, mood disturbance, and anxiety; F17.210 Nicotine dependence, cigarettes, uncomplicated; Z79.899 Other long term (current) drug therapy; Z88.0 Allergy status to penicillin; X58.XXXA Exposure to other specified factors, initial encounter
CPT/HCPCS: 36415; 72131; 80048; 85025; 85610; 85730; 99285